=== PATIENT | female | born 2000 ===

== ENCOUNTER 2020-02-21 19:30 | Inpatient (IN) | payer OTHER ==
[~2020-02-21 19:30] MED LIST: Bupivacaine PF 0.5% 30 ML VIAL ONE
[2020-02-21 19:38] VITALS: BMI 21.3
[2020-02-21] MEDS ORDERED: Lidocaine 1% (PF) 30 ML VIAL SC PRN (19:58)
[2020-02-21] MEDS ORDERED: Acetaminophen 500 MG TAB PO PRN (19:58)
[2020-02-21] MEDS ORDERED: hydrALAZINE 20 MG/ML VIAL SLOW IVP PRN (19:58)
[2020-02-21] MEDS ORDERED: Ondansetron PF 4 MG/2 ML Vial IVP PRN ×2 (19:58→22:42)
[2020-02-21] MEDS ORDERED: Methylergonovine 0.2 MG/ML VIAL IM PRN (19:58)
[2020-02-21] MEDS ORDERED: Ibuprofen 800 MG TAB PO PRN (19:58)
[2020-02-21] MEDS ORDERED: Misoprostol 200 MCG TAB PR PRN (19:58)
[2020-02-21] MEDS ORDERED: Carboprost 250 MCG/ML AMP IM PRN (19:58)
[2020-02-21] MEDS ORDERED: Diphenoxylate HCl/Atropine Tablet PO PRN ×2 (19:58)
[2020-02-21] MEDS ORDERED: NS / Oxytocin 40 units/1000ml 1,000 ML IV PRN (19:58)
[2020-02-21] MEDS ORDERED: Docusate 100 MG CAP PO PRN (19:58)
[2020-02-21] MEDS ORDERED: Zolpidem Tartrate 5 MG TAB PO PRN (19:58)
[2020-02-21] MEDS ORDERED: Promethazine HCl 25 MG/ML VIAL IM PRN ×2 (19:58→22:42)
[2020-02-21] MEDS ORDERED: Butorphanol Tartrate 1 MG/ML VIAL SLOW IVP PRN (19:58)
[2020-02-21] MEDS ORDERED: HYDROcodone/Acetaminophen 5/325 mg Tablet PO PRN ×2 (19:58)
[2020-02-21] MEDS ORDERED: NS w/ Oxytocin 10 units 500 ML IV SCH ×2 (20:00)
--- NOTE | 2020-02-21 20:04 | PDOC.LDHP ---
Labor and Delivery H&P Chief complaint: contractions HPI: 19 y/o at 38 w and 2 days, GBS NEG, presents at 6 cm in labor. Current gestational age (weeks): 38 Due date: 03/04/20 Grav: 1 Para: 0 Current complications: none Abnormal US findings: No Current medications: pre- vitamins Allergies/Adverse Reactions: Allergies Allergy/AdvReac Type Severity Reaction Status Date / Time No Known Allergies Allergy Verified 02/21/20 19:33 Social history: none - Physical Exam Vital signs reviewed and normal: yes General: NAD Heart: RRR Lungs: CTAB Abdomen: gravid Extremeties: no edema FHT: category 1 - Assessment L&D Assessment: term patient in labor - Plan Plan: admit to L&D, labor augmentation if indicated
[2020-02-21] MEDS: Lactated Ringer's 1,000 ML IV SCH ×2 (20:13→20:55)
[2020-02-21 20:24] LABS: Hemoglobin 11.3 g/dL (12.0-16.0); Mean Corpuscular HGB CONC 33.9 g/dL (32.0-36.0); Mean Corpuscular Hemoglobin 27.6 pg (25.0-35.0); Mean Corpuscular Volume 81.4 fL (78.0-98.0); Mean Platelet Volume 7.8 fL (7.4-10.4); Platelet Count 311 thou/uL (130-400); RBC Distribution Width 12.2 % (11.5-14.5); White Blood Cell (WBC) Count 17.6 thou/uL (4.8-10.8)
[2020-02-21] MEDS ORDERED: Fentanyl 4 mcg/Bup 0.1% Cadd 100 ML ONE (20:30)
[2020-02-21 21:11] LABS: Syphilis Antibody Nonreactive (Nonreactive); Syphilis Antibody Index 0.05 S/CO (<1.00 Non-Reactive)
[2020-02-21] MEDS ORDERED: diphenhydrAMINE 50 MG/ML VIAL IVP PRN (22:42)
[2020-02-21] MEDS ORDERED: EPHEDRINE 25 MG/5 ML SYRINGE SLOW IVP PRN (22:42)
[2020-02-21] MEDS ORDERED: Acetaminophen 325 MG TAB PO PRN (22:42)
[2020-02-21] MEDS ORDERED: Lactated Ringer's 500 ML IV PRN (22:42)
[2020-02-21] MEDS ORDERED: Naloxone HCl 0.4 mg/ml Vial IVP PRN ×2 (22:42)
[2020-02-21] MEDS ORDERED: Fentanyl 4 mcg/Bupivacaine 0.1% Cassette 100 ML EPIDURAL SCH (22:45)
[2020-02-21] MEDS ORDERED: Communication Order-Pharmacy FS SCH (22:45)
[2020-02-21 23:36] LABS: HBSAg Index 0.22 S/CO (0-0.99); Hep B Surf Ag Non-Reactive S/CO (NonReactive)
[2020-02-22] MEDS ORDERED: NS / Oxytocin 40 units/1000ml 1,000 ML IV SCH
[2020-02-22] MEDS ORDERED: Bisacodyl 10 MG SUPP PR PRN
[2020-02-22] MEDS ORDERED: Lanolin Ointment 7 GM TUBE TOP PRN
[2020-02-22] MEDS ORDERED: Ondansetron PF 4 MG/2 ML Vial IVP PRN
[2020-02-22] MEDS ORDERED: Zolpidem Tartrate 5 MG TAB PO PRN
[2020-02-22] MEDS ORDERED: Milk Of Magnesia 30 ML UDCUP PO PRN
[2020-02-22] MEDS ORDERED: Preparation H Ointment 28 GM TUBE PR PRN
[2020-02-22] MEDS ORDERED: Promethazine HCl 25 MG/ML VIAL IM PRN
[2020-02-22] MEDS ORDERED: hydrALAZINE 20 MG/ML VIAL SLOW IVP PRN
[2020-02-22] MEDS ORDERED: diphenhydrAMINE 25 MG CAP PO PRN
[2020-02-22] MEDS ORDERED: HYDROcodone/Acetaminophen 5/325 mg Tablet PO PRN ×2
[2020-02-22] MEDS ORDERED: Methylergonovine 0.2 MG/ML VIAL IM PRN
[2020-02-22] MEDS ORDERED: Benzocaine-Menthol 82.5 ML CAN TOP PRN
[2020-02-22 05:32] LABS: Hemoglobin 10.1 g/dL (12.0-16.0); Mean Corpuscular Hemoglobin 27.9 pg (25.0-35.0); Mean Corpuscular Volume 81.8 fL (78.0-98.0); Mean Platelet Volume 8.1 fL (7.4-10.4); Platelet Count 239 thou/uL (130-400); Red Blood Cell (RBC) Count 3.63 mill/uL (4.00-5.20); White Blood Cell (WBC) Count 17.3 thou/uL (4.8-10.8)
[2020-02-22] MEDS: Ibuprofen 800 MG TAB PO SCH ×2 (05:43→14:01)
[2020-02-22] MEDS: Ferrous Sulfate 325 MG TAB PO SCH ×2 (07:46→14:08)
[2020-02-22] MEDS ORDERED: Adacel (T-DAP) 0.5 ML SYRINGE IM ONE (09:00)
[2020-02-22] MEDS ORDERED: Prenatal Vitamin 1 TAB PO SCH (09:00)
[2020-02-22] MEDS ORDERED: Docusate Calcium (SURFAK) 240 MG CAP PO SCH (09:00)
[2020-02-22] MEDS ORDERED: Measles/Mumps/Rubella 10 MCG/0.5 ML VIAL SC ONE (09:00)
[2020-02-22] MEDS ORDERED: Varicella virus, LIVE 0.5 ML VIAL SC ONE (09:00)
[2020-02-22 11:13] VITALS: BP 106/59; TEMP 97.8
--- NOTE | 2020-02-22 13:49 | PDOC.PP ---
Post Progress Note Post Day #: 1 PO intake tolerated: yes Flatus: yes Ambulation: yes Vital Signs (12 hours) Temp Pulse Resp BP Pulse Ox 02/22/20 11:12 97.8 F 74 20 106/59 L 02/22/20 07:36 98.8 F 88 20 97/52 L 97 02/22/20 04:00 98.6 F 80 16 112/59 L 97 02/22/20 01:55 97.6 F 78 16 113/55 L 98 Weight Weight 132 lb - Physical Examination General: NAD Cardiovascular: no m/r/g, RRR Respiratory: clear to auscultation bilaterally, non-labored breathing Abdominal: + bowel sounds, lochia, no distention, appropriately TTP Extremities: negative homans (B) Skin: CS incision dry & intact, no rash Neurological: no gross focal deficits Psychiatric: A&Ox3, normal affect Result Diagrams: 02/22/20 05:12 Additional Labs: Post Labs Blood Type AB POSITIVE 02/21/20 20:42 Hep Bs Antigen Non-Reactive S/CO (NonReactive) 02/21/20 20:19
--- NOTE | 2020-02-22 16:17 | DN ---
DATE OF PROCEDURE: 02/21/2020 TIME OF SERVICE: 2200 hours central daylight savings time. PREOPERATIVE DIAGNOSIS: Intrauterine at 38 weeks and 2 days with spontaneous onset of labor. POSTOPERATIVE DIAGNOSIS: Intrauterine at 38 weeks and 2 days with spontaneous onset of labor. PROCEDURE PERFORMED: Spontaneous vaginal delivery over second-degree laceration of the perineum. FINDINGS: Viable female infant, weighing 2880 g or 6 pounds 6 ounces, Apgars 8 and 9. QUANTITATIVE BLOOD LOSS: 211 mL. COMPLICATIONS: None. PROCEDURE IN DETAIL: The patient presented to [facility] where she was admitted to the labor and delivery service. The patient underwent a normal and uneventful labor with normal cervical dilatation until she was found to be completely dilated. She was then allowed to push and was able to bring the baby down and delivered the baby in a vertex presentation without difficulties. Once the head delivered in occiput anterior position, the shoulders followed spontaneously along with the rest of the baby's body. Once out the baby's mouth and nose were bulb suctioned. The cord was clamped and cut and baby was handed to waiting attendants. Cord blood was collected. Gentle fundal massage was performed and the placenta delivered intact without problems. Hemostasis was assured. Quantitative blood loss was calculated. Inspection of the cervix, vaginal vault, and perineum did not reveal any lacerations needing suturing. Once again, hemostasis was within normal limits and the patient was allowed to recover in the labor and delivery room. Baby went to nursery. Job ID: [id number]
== END 2020-02-22 15:20 | disposition home or self-care (01) | DRG 807 ==
LOC: L&D/OP 19:30 → L&D 20:33 → 3SW 02-22 01:07
PROVIDERS: ADMIT Obstetrics & Gynecology; ATTEND Obstetrics & Gynecology
PROC: 10E0XZZ Delivery of Products of Conception, External Approach (ICD-10-PCS; principal; 2020-02-21)
PROC: 0KQM0ZZ Repair Perineum Muscle, Open Approach (ICD-10-PCS; 2020-02-21)
DX: O70.1 Second degree perineal laceration during delivery (principal); Z37.0 Single live birth; Z3A.38 38 weeks gestation of pregnancy
CPT/HCPCS: 36415; 51702; 85027; 86780; 86850; 86900; 86901; 87340; 99285; S0020